=== PATIENT | male | born 1945 | race Hispanic/Latino ===

== ENCOUNTER 2017-06-22 08:18 | Day surgery (SDC) | payer MEDICARE ==
[2016-06-14 09:51] VITALS: BMI 33.0
[2017-06-22] MEDS ORDERED: Lactated Ringer's 1,000 ML IV SCH (09:15)
[2017-06-22] MEDS ORDERED: Propofol 10 mg/ml Inj (20 ML) ONE (09:59)
[2017-06-22] MEDS ORDERED: ePHEDrine 50 mg/ml Inj ONE (11:20)
[2017-06-22 12:15] VITALS: O2SAT 95
[2017-06-22 12:30] VITALS: BP 107/62; PULSE 60; RESP 18; TEMP 97.6
== END 2017-06-22 13:04 | disposition home or self-care (01) ==
LOC: ENDO 08:18
PROVIDERS: ATTEND Internal Medicine Gastroenterology
DX: K29.50 Unspecified chronic gastritis without bleeding (principal); K31.9 Disease of stomach and duodenum, unspecified; Z12.11 Encounter for screening for malignant neoplasm of colon; K64.8 Other hemorrhoids; K64.4 Residual hemorrhoidal skin tags; K62.89 Other specified diseases of anus and rectum; K63.89 Other specified diseases of intestine
CPT/HCPCS: 43239; 45380; 88305; 88312; 88342; J2001; J2704; J3010; J7040; J7120

== ENCOUNTER 2017-09-27 12:42 | Emergency (ER) | payer MEDICARE ==
[2017-09-27 12:43] VITALS: BMI 33.0
[2017-09-27 13:20] VITALS: BP 155/70
--- NOTE | 2017-09-27 13:54 | ED PDOC ---
Arrival/HPI - General Chief Complaint: ENT Problem Time Seen by Provider: 09/27/17 13:53 Historian: Patient - History of Present Illness Narrative History of Present Illness (Text): 09/27/17 13:54 A 72 year old male, whose past medical history includes hypertension, cholecystectomy, and coronary stent x 1, presents to the emergency department complaining of sore throat. Patient reports 1 week ago having been diagnosed with URI, and felt better 4 days ago. Afterwards, patient began developing sore throat and right-side throat pain. Patient denies any toothache, earache, fever , chest pain, shortness of breath, abdominal pain, or any other complaints. Patient also denies any recent travel or recent sick contacts. Also, patient is requesting to have [employer] since it has work in the past. 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) - Surgical History Hx Cataract Extraction: Yes Hx Cholecystectomy: Yes Hx Coronary Stent: Yes (x1) - Anesthesia Hx Anesthesia Reactions: No Hx Malignant Hyperthermia: No - Suicidal Assessment Feels Threatened In Home Enviroment: No Family/Social History - Physician Review Nursing Documentation Reviewed: Yes Family/Social History: Other (noncontributory) Smoking Status: Heavy Smoker > 10 Cigarettes Daily Hx Alcohol Use: No (NOT SINCE 8 YRS) 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 absent: Fevers, Night Sweats Eyes: Normal ENT: Sore Throat (as wel as right-side throat pain). absent: Other (no earache and no toothache.) Respiratory: Normal. absent: SOB, Cough, Sputum, Wheezing Cardiovascular: absent: Chest Pain, Palpitations, Edema, Calf Pain, AYALA, Orthopnea, Syncope Gastrointestinal: Normal. absent: Abdominal Pain Genitourinary Male: Normal. absent: Dysuria, Hematuria Musculoskeletal: Normal. absent: Myalgias Skin: Normal. absent: Rash Neurological: Normal. absent: Headache, Dizziness, Focal Weakness, Gait Changes , Speech Changes, Facial Droop, Disequilibrium, Seizure Endocrine: Normal Hemo/Lymphatic: Normal Psychiatric: Normal Physical Exam Vital Signs Reviewed: Yes Vital Signs Temp Pulse Resp BP Pulse Ox 09/27/17 13:16 97.8 F 58 L 17 155/70 H 97 Temperature: Afebrile Blood Pressure: Hypertensive Pulse: Regular Respiratory Rate: Normal Appearance: Positive for: Well-Appearing Pain Distress: None Mental Status: Positive for: Alert and Oriented X 3 - Systems Exam Head: Present: Atraumatic, Normocephalic Pupils: Present: PERRL Extroacular Muscles: Present: EOMI Conjunctiva: Present: Normal Mouth: Present: Moist Mucous Membranes Pharnyx: Present: ERYTHEMA (mild). No: EXUDATE, Peritonsilar Swelling, Uvular Deviation, Muffled/Hoarse Voice, Strider, Soft Palate/Uvular Edema Neck: Present: Normal Range of Motion, Trachea Midline. No: Meningeal Signs, MIDLINE TENDERNESS, Paraspinal Tenderness, Lymphadenopathy Respiratory/Chest: Present: Clear to Auscultation, Good Air Exchange. No: Respiratory Distress, Accessory Muscle Use, Wheezes, Retracting, Rhonchi Cardiovascular: Present: Regular Rate and Rhythm, Normal S1, S2. No: Murmurs Abdomen: No: Tenderness, Distention, Peritoneal Signs Back: Present: Normal Inspection Upper Extremity: Present: Normal Inspection, Normal ROM. No: Cyanosis, Edema Lower Extremity: Present: Normal Inspection, Normal ROM. No: Edema Neurological: Present: GCS=15, CN II-XII Intact, Speech Normal, Motor Func Grossly Intact, Normal Sensory Function, Normal Cerebellar Funct, Gait Normal, Memory Normal, Other (no neuro focal deficits) Skin: Present: Warm, Dry, Normal Color. No: Rashes Psychiatric: Present: Alert, Oriented x 3, Normal Insight, Normal Concentration Medical Decision Making ED Course and Treatment: 09/27/17 14:05 Impression: 72 year old male with sore throat and right-side throat pain. Physical exam shows some erythema to pharynx, no visible exudates. Plan: -- Reassess and disposition Progress Notes: 09/27/17 14:00 Re-evaluation. Patient feels better. Discussed results and plan with patient who expresses understanding. All questions answered and there is agreement with the plan to discharge home with instructions. Patient stable for discharge. Return if symptoms persist or worsen. Re-evaluation Time: 14:11 Reassessment Condition: Re-examined, Improved - Scribe Statement The provider has reviewed the documentation as recorded by the Thomas Rivera Provider Scribe Attestation: All medical record entries made by the Roeibchuckie were at my direction and personally dictated by me. I have reviewed the chart and agree that the record accurately reflects my personal performance of the history, physical exam, medical decision making, and the department course for this patient. I have also personally directed, reviewed, and agree with the discharge instructions and disposition. Disposition/Present on Arrival - Present on Arrival Any Indicators Present on Arrival: No History of DVT/PE: No History of Uncontrolled Diabetes: No Urinary Catheter: No History of Decub. Ulcer: No History Surgical Site Infection Following: None - Disposition Have Diagnosis and Disposition been Completed?: Yes Diagnosis: Pharyngitis Disposition: HOME/ ROUTINE Disposition Time: 14:08 Patient Plan: Discharge Patient Problems: Current Active Problems Problem Status Onset Pharyngitis Acute Condition: IMPROVED Discharge Instructions (ExitCare): Sore Throat in Adults Additional Instructions: Call private doctor for follow up visit in 1-2 days. Take medication as instructed. Return to emergency if symptoms worsen, shortness of breath, or worsening of symptoms. Prescriptions: Azithromycin [Z-Filippo] 250 mg PO DAILY #6 tab Referrals: Sharad Storey MD [Non-Staff] - Follow up with primary Forms: [employer] ([place])
[2017-09-27 16:58] VITALS: PULSE 59; RESP 18; TEMP 98.1; O2SAT 98
== END 2017-09-27 14:12 | disposition home or self-care (01) ==
LOC: ED 12:42
DX: J02.9 Acute pharyngitis, unspecified (principal); F17.210 Nicotine dependence, cigarettes, uncomplicated

== ENCOUNTER 2018-06-09 08:32 | Emergency (ER) | payer MEDICARE ==
[2018-06-09 08:33] VITALS: BMI 33.0
[2018-06-09 09:14] VITALS: BP 150/85; PULSE 56; RESP 20; TEMP 99.4; O2SAT 98
[2018-06-09 09:39] LABS: ALB/GLOB RATIO 1.4 (1.1-1.8); ALBUMIN 4.2 g/dL (3.0-4.8); ALT/SGPT 28 U/L (7-56); AST/SGOT 34 U/L (17-59); BLOOD UREA NITROGEN 12 mg/dL (7-21); CALCIUM 9.4 mg/dL (8.4-10.5); GFR NON-AFRICAN AMERICAN > 60
[2018-06-09 09:45] LABS: BASO # 0.06 K/mm3 (0.0-2.0); BASO % 0.6 % (0.0-3.0); EOS # 0.7 (0.0-0.7); EOS % 7.4 % (1.5-5.0); GRAN # 6.5 (1.4-6.5); GRAN % 66.2 % (50.0-68.0); HEMOGLOBIN 13.1 g/dL (14.0-18.0); LYMPH # 1.9 (1.2-3.4); LYMPH % 19.1 % (22.0-35.0); MEAN CORPUSCULAR HEMOGLOBIN 34.4 pg (25.0-35.0); MEAN CORPUSCULAR HGB CONC 34.4 g/dl (31.0-37.0); MEAN PLATELET VOLUME 10.2 fl (7.0-11.0); MONO # 0.7 (0.1-0.6); MONO % 6.7 % (1.0-6.0); RBC 3.81 10^6/uL (3.5-6.1); RED CELL DISTRIBUTION WIDTH 13.4 % (11.5-14.5); WHITE BLOOD COUNT 9.8 10^3/uL (4.5-11.0)
[2018-06-09 09:51] LABS: B-TYPE NATRIURETIC PEPTIDE 126 pg/mL (0-450); TROPONIN I < 0.01 ng/mL
--- NOTE | 2018-06-09 09:54 | CT ---
Date of service: 06/09/2018 PROCEDURE: CT HEAD WITHOUT CONTRAST. HISTORY: Dizziness 3 days duration. R/o ICH COMPARISON: 05/07/2016. CT head. TECHNIQUE: Axial computed tomography images were obtained through the head/brain without intravenous contrast. Supplemental Coronal and Sagittal projections created and reviewed. Radiation dose: Total exam DLP = 832.35 mGy-cm. This CT exam was performed using one or more of the following dose reduction techniques: Automated exposure control, adjustment of the mA and/or kV according to patient size, and/or use of iterative reconstruction technique. FINDINGS: HEMORRHAGE: No intracranial hemorrhage. BRAIN: No mass effect or edema. No atrophy or chronic microvascular ischemic changes. VENTRICLES: Unremarkable. No hydrocephalus. CALVARIUM: Unremarkable. PARANASAL SINUSES: Chronic ethmoid air cell disease. MASTOID AIR CELLS: Unremarkable as visualized. No inflammatory changes. OTHER FINDINGS: None. IMPRESSION: No acute intracranial abnormalities. No significant findings to account for the clinical presentation. No significant interval change compared to the prior examination(s).
[2018-06-09 10:13] LABS: T3 1.07 ng/mL (0.97-1.69)
--- NOTE | 2018-06-09 10:27 | RAD ---
Date of service: 06/09/2018 HISTORY: r/o infiltrate COMPARISON: 01/26/2017 FINDINGS: LUNGS: No active pulmonary disease. PLEURA: No significant pleural effusion identified, no pneumothorax apparent. CARDIOVASCULAR: Atherosclerotic calcifications identified primarily aortic arch. No radiographic findings to suggest acute or significant cardiovascular disease. OSSEOUS STRUCTURES: No significant abnormalities. Radiographic healing of multiple contiguous posterior lateral right rib fractures. Similar findings identified on the prior study. VISUALIZED UPPER ABDOMEN: Normal. OTHER FINDINGS: None. IMPRESSION: No active disease. No significant interval change compared to the prior examination(s).
[2018-06-09 10:31] LABS: PH,URINE 6.5 (4.7-8.0); URINE BILIRUBIN NEGATIVE (NEGATIVE); URINE BLOOD NEGATIVE (NEGATIVE); URINE GLUCOSE (UA) NEGATIVE (NEGATIVE); URINE LEUKOCYTE ESTERASE NEGATIVE Leu/uL (NEGATIVE); URINE PROTEIN NEGATIVE mg/dL (<30 mg/dL); URINE UROBILINOGEN 0.2 E.U./dL (<1 E.U./dL)
[2018-06-09 10:32] LABS: URINE APPEARANCE CLEAR (CLEAR); URINE COLOR YELLOW (YELLOW)
[2018-06-09] MEDS ORDERED: Sodium Chloride 0.9% 1,000 ML IV SCH (11:00)
--- NOTE | 2018-06-09 12:42 | CP.PCM.HP ---
<Thanh Rios - Last Filed: 06/09/18 12:56> History of Present Illness - History of Present Illness History of Present Illness: H&P for hospitalist CC: Dizziness & headache 73 M with PMHx oo AAA s/p stent repair, HTN, chronic diarrhea presents with dizziness and headache. Patient states that his symptoms started 3-4 days ago. The dizziness is intermittent and can come at any time. Denies any dizziness at this time. Patient also states that he is feeling a cold coming with runny nose, and nasal/facial congestion. Patient states that 3 days ago he went to his shelter case manager which did an EKG and was sent home and told to follow with his PMD. He denies any other symptoms. Denies any fever, chills, sore throat, sob, chest pain, abd pain, n/v, urinary symptoms. 12 Point ROS performed and neg other than stated above PMHx: as above PSHx: AAA repair, pilonidal cyst remova, cholecystecotmy ALL: NKA SH: prior heroin use?, denies drinking, smokes 1.5 PPD FH: father with hear disease Present on Admission - Present on Admission Any Indicators Present on Admission: No Review of Systems - Review of Systems All systems: reviewed and no additional remarkable complaints except Past Patient History - Infectious Disease Hx of Infectious Diseases: None - Past Social History Smoking Status: Heavy Smoker > 10 Cigarettes Daily - CARDIAC Hx Hypertension: Yes - NEUROLOGICAL Hx Paralysis: No - HEMATOLOGICAL/ONCOLOGICAL Hx Blood Transfusions: No - MUSCULOSKELETAL/RHEUMATOLOGICAL Hx Musculoskeletal Disorders: No - PSYCHIATRIC Hx Emotional Abuse: No Hx Physical Abuse: No 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, 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) - SURGICAL HISTORY Hx Cataract Extraction: Yes Hx Cholecystectomy: Yes Hx Coronary Stent: Yes (x1) - ANESTHESIA Hx Anesthesia: Yes Hx Anesthesia Reactions: No Hx Malignant Hyperthermia: No Meds Home Medications: Home Medication List Medication Instructions Recorded Confirmed Type RX: Meclizine [Meclizine*] 25 mg PO TID #15 tab 06/09/18 Rx Allergies/Adverse Reactions: Allergies Allergy/AdvReac Type Severity Reaction Status Date / Time No Known Allergies Allergy Verified 06/09/18 09:00 Physical Exam - Constitutional Appears: No Acute Distress - Head Exam Head Exam: ATRAUMATIC, NORMOCEPHALIC - Eye Exam Eye Exam: EOMI, PERRL - ENT Exam ENT Exam: Mucous Membranes Moist - Respiratory Exam Respiratory Exam: Clear to Auscultation Bilateral. absent: Rales, Wheezes - Cardiovascular Exam Cardiovascular Exam: REGULAR RHYTHM, RRR, +S1, +S2 - GI/Abdominal Exam GI & Abdominal Exam: Normal Bowel Sounds, Soft - Extremities Exam Extremities exam: Negative for: calf tenderness, pedal edema - Neurological Exam Neurological exam: Alert, CN II-XII Intact, Oriented x3 - Psychiatric Exam Psychiatric exam: Normal Mood - Skin Skin Exam: Dry, Intact, Warm Results - Vital Signs Recent Vital Signs: Last Vital Signs Temp 99.4 F 06/09/18 08:49 Pulse 56 L 06/09/18 08:49 Resp 20 06/09/18 08:49 BP 150/85 06/09/18 08:49 Pulse Ox 98 06/09/18 08:43 - Labs Result Diagrams: 06/09/18 09:12 06/09/18 09:12 Labs: Laboratory Results - last 24 hr 06/09/18 06/09/18 06/09/18 09:12 09:12 09:12 WBC 9.8 RBC 3.81 Hgb 13.1 L Hct 38.1 L MCV 100.0 MCH 34.4 MCHC 34.4 RDW 13.4 Plt Count 318 MPV 10.2 Gran % 66.2 Lymph % (Auto) 19.1 L Gillespie % (Auto) 6.7 H Eos % (Auto) 7.4 H Baso % (Auto) 0.6 Gran # 6.50 Lymph # (Auto) 1.9 Gillespie # (Auto) 0.7 H Eos # (Auto) 0.7 Baso # (Auto) 0.06 Sodium 138 Potassium 3.9 Chloride 104 Carbon Dioxide 27 Anion Gap 11 BUN 12 Creatinine 0.8 Est GFR ( Amer) > 60 Est GFR (Non-Af Amer) > 60 Random Glucose 148 H Calcium 9.4 Magnesium 1.8 Total Bilirubin 0.4 AST 34 ALT 28 Alkaline Phosphatase 67 Lactate Dehydrogenase 517 Total Creatine Kinase 104 Troponin I < 0.01 NT-Pro-B Natriuret Pep 126 Total Protein 7.3 Albumin 4.2 Globulin 3.0 Albumin/Globulin Ratio 1.4 Total T3 1.07 TSH 3rd Generation 2.41 Urine Color Urine Appearance Urine pH Ur Specific [place] Urine Protein Urine Glucose (UA) Urine Ketones Urine Blood Urine Nitrate Urine Bilirubin Urine Urobilinogen Ur Leukocyte Esterase Influenza Typ A,B (EIA) 06/09/18 06/09/18 10:15 12:15 WBC RBC Hgb Hct MCV MCH MCHC RDW Plt Count MPV Gran % Lymph % (Auto) Gillespie % (Auto) Eos % (Auto) Baso % (Auto) Gran # Lymph # (Auto) Gillespie # (Auto) Eos # (Auto) Baso # (Auto) Sodium Potassium Chloride Carbon Dioxide Anion Gap BUN Creatinine Est GFR ( Amer) Est GFR (Non-Af Amer) Random Glucose Calcium Magnesium Total Bilirubin AST ALT Alkaline Phosphatase Lactate Dehydrogenase Total Creatine Kinase Troponin I NT-Pro-B Natriuret Pep Total Protein Albumin Globulin Albumin/Globulin Ratio Total T3 TSH 3rd Generation Urine Color Yellow Urine Appearance Clear Urine pH 6.5 Ur Specific [place] <= 1.005 Urine Protein Negative Urine Glucose (UA) Negative Urine Ketones Negative Urine Blood Negative Urine Nitrate Negative Urine Bilirubin Negative Urine Urobilinogen 0.2 Ur Leukocyte Esterase Negative Influenza Typ A,B (EIA) Negative for flu a/b Assessment & Plan - Assessment and Plan (Free Text) Assessment: 73 M with PMHx oo AAA s/p stent repair, HTN, chronic diarrhea presents with dizziness and headache. Likely 2/2 URI / labrynthitis. Dizziness likely 2/2 labrynthitis: - EKG - bradycardic nsr - Head CT - neg - CXR was neg - Started on Meclizine 25mg TID - Consider decreasing metoprolol as HR is 55 - Labwork reviewed - Influenza - neg - Cardiology and neuro evaluation - Physicial Therapy HTN: - Cont lisinopril and metoprolol - Consider dec Metoprolol - F/u orthostatic HTN Evaluated the patient in the ED. Patient states that his dizziness and completely subsided and does not want to be admitted overnight for observation. Patient wishes to go home and follow up with his cardiology Dr Lugo tomorrow. Explained to the patient that if his symptoms recur come back to the ED. Script for Meclizine sent to the pharmacy. Case and plan was reviewed and discussed with Dr Hankins. <Carlos Hankins - Last Filed: 06/09/18 18:19> Results - Vital Signs Recent Vital Signs: Last Vital Signs Temp 99.4 F 06/09/18 08:49 Pulse 56 L 06/09/18 08:49 Resp 20 06/09/18 08:49 BP 150/85 06/09/18 08:49 Pulse Ox 98 06/09/18 08:43 - Labs Result Diagrams: 06/09/18 09:12 06/09/18 09:12 Labs: Laboratory Results - last 24 hr 06/09/18 06/09/18 06/09/18 08:55 09:12 09:12 WBC 9.8 RBC 3.81 Hgb 13.1 L Hct 38.1 L MCV 100.0 MCH 34.4 MCHC 34.4 RDW 13.4 Plt Count 318 MPV 10.2 Gran % 66.2 Lymph % (Auto) 19.1 L Gillespie % (Auto) 6.7 H Eos % (Auto) 7.4 H Baso % (Auto) 0.6 Gran # 6.50 Lymph # (Auto) 1.9 Gillespie # (Auto) 0.7 H Eos # (Auto) 0.7 Baso # (Auto) 0.06 Sodium 138 Potassium 3.9 Chloride 104 Carbon Dioxide 27 Anion Gap 11 BUN 12 Creatinine 0.8 Est GFR ( Amer) > 60 Est GFR (Non-Af Amer) > 60 POC Glucose (mg/dL) 177 H Random Glucose 148 H Calcium 9.4 Magnesium 1.8 Total Bilirubin 0.4 AST 34 ALT 28 Alkaline Phosphatase 67 Lactate Dehydrogenase 517 Total Creatine Kinase 104 Troponin I < 0.01 NT-Pro-B Natriuret Pep 126 Total Protein 7.3 Albumin 4.2 Globulin 3.0 Albumin/Globulin Ratio 1.4 Total T3 TSH 3rd Generation Urine Color Urine Appearance Urine pH Ur Specific [place] Urine Protein Urine Glucose (UA) Urine Ketones Urine Blood Urine Nitrate Urine Bilirubin Urine Urobilinogen Ur Leukocyte Esterase Influenza Typ A,B (EIA) 06/09/18 06/09/18 06/09/18 09:12 10:15 12:15 WBC RBC Hgb Hct MCV MCH MCHC RDW Plt Count MPV Gran % Lymph % (Auto) Gillespie % (Auto) Eos % (Auto) Baso % (Auto) Gran # Lymph # (Auto) Gillespie # (Auto) Eos # (Auto) Baso # (Auto) Sodium Potassium Chloride Carbon Dioxide Anion Gap BUN Creatinine Est GFR ( Amer) Est GFR (Non-Af Amer) POC Glucose (mg/dL) Random Glucose Calcium Magnesium Total Bilirubin AST ALT Alkaline Phosphatase Lactate Dehydrogenase Total Creatine Kinase Troponin I NT-Pro-B Natriuret Pep Total Protein Albumin Globulin Albumin/Globulin Ratio Total T3 1.07 TSH 3rd Generation 2.41 Urine Color Yellow Urine Appearance Clear Urine pH 6.5 Ur Specific [place] <= 1.005 Urine Protein Negative Urine Glucose (UA) Negative Urine Ketones Negative Urine Blood Negative Urine Nitrate Negative Urine Bilirubin Negative Urine Urobilinogen 0.2 Ur Leukocyte Esterase Negative Influenza Typ A,B (EIA) Negative for flu a/b Attending/Attestation - Attestation I have personally seen and examined this patient.: Yes I have fully participated in the care of the patient.: Yes I have reviewed all pertinent clinical information: Yes Notes (Text): 06/09/18 18:16 Medical record note made by the resident after discussion with my direction and input after the patient was personally seen and examined by me. I have reviewed the chart and agree that the record accurately reflects by personal performance of the history, physical exam, data review, and medical decision-making, in the course for the patient. I have also personally directed the plan of care. 73 M with PMHx oo AAA s/p stent repair, HTN, chronic diarrhea presents with dizziness and headache.CT head is negative.There is no focal deficit. There is H/o URI.The etiology is likely due Labyrinthitis. Patient is ambulatory in the ER and is asymptometic.He does not want to stay in the hospital. Risk and benefit was discussed in detail with him. As patient does not want to stay in the hospital, he will be discharged home on Meclizine and he will follow up with his PCP and Cardiology. He was educated about the risk of fall in detail. Management plan was discussed in detail with patient. Education was provided
--- NOTE | 2018-06-09 15:51 | ED PDOC ---
Arrival/HPI - General Chief Complaint: Dizziness/Lightheaded Time Seen by Provider: 06/09/18 08:37 Historian: Patient - History of Present Illness Narrative History of Present Illness (Text): 06/09/18 15:51 A 73 year old male, whose past medical history includes hypertension, cholecysectomy, and coranary stent x 1, presents to the emergency department complaining of multiple episodes of dizziness for 3 days. Patient reports having 10-15 episodes of dizzy spells daily. States he does various activities when these occur and is uncertain what specifically causes dizziness to happen. 3 days ago, patient went to see his assistant mechanic and had an EKG performed, which was negative. Patient denies any other complaints at this time. PMD: Dr. Robin Weld Technician: Dr. 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) - Surgical History Hx Cataract Extraction: Yes Hx Cholecystectomy: Yes Hx Coronary Stent: Yes (x1) - Anesthesia Hx Anesthesia: Yes Hx Anesthesia Reactions: No Hx Malignant Hyperthermia: No - Suicidal Assessment Feels Threatened In Home Enviroment: No Family/Social History - Physician Review Nursing Documentation Reviewed: Yes Family/Social History: No Known Family HX Smoking Status: Heavy Smoker > 10 Cigarettes Daily Hx Alcohol Use: No (NOT SINCE 8 YRS) 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, 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) Allergies/Home Meds Allergies/Adverse Reactions: Allergies No Known Allergies Allergy (Verified 06/09/18 09:00) Home Medications: Home Meds Medication Instructions Recorded Confirmed Lisinopril 40 mg PO DAILY 10/01/15 06/09/18 Metoprolol Tartrate 25 mg PO BID 10/01/15 06/09/18 Review of Systems - Physician Review All systems were reviewed & negative as marked: Yes - Review of Systems Constitutional: absent: Fevers, Night Sweats Respiratory: absent: SOB Cardiovascular: absent: Chest Pain Gastrointestinal: absent: Abdominal Pain, Diarrhea, Nausea Neurological: Dizziness (10-15 episodes daily, uncertain how they occur.). absent: Headache Physical Exam Vital Signs Reviewed: Yes Vital Signs Temp Pulse Resp BP Pulse Ox 06/09/18 08:49 99.4 F 56 L 20 150/85 06/09/18 08:43 99.4 F 52 L 18 150/72 98 Temperature: Afebrile Blood Pressure: Normal Pulse: Regular Respiratory Rate: Normal Appearance: Positive for: Well-Appearing, Non-Toxic, Comfortable Pain Distress: None Mental Status: Positive for: Alert and Oriented X 3 Finger Stick Blood Glucose: 177 - Systems Exam Head: Present: Atraumatic, Normocephalic Pupils: Present: PERRL Extroacular Muscles: Present: EOMI Conjunctiva: Present: Normal Mouth: Present: Moist Mucous Membranes Neck: Present: Normal Range of Motion Respiratory/Chest: Present: Clear to Auscultation, Good Air Exchange. No: Respiratory Distress, Accessory Muscle Use Cardiovascular: Present: Regular Rate and Rhythm, Normal S1, S2. No: Murmurs Abdomen: No: Tenderness, Distention, Peritoneal Signs Back: Present: Normal Inspection Upper Extremity: Present: Normal Inspection. No: Cyanosis, Edema Lower Extremity: Present: Normal Inspection. No: Edema Neurological: Present: GCS=15, CN II-XII Intact, Speech Normal Skin: Present: Warm, Dry, Normal Color. No: Rashes Psychiatric: Present: Alert, Oriented x 3, Normal Insight, Normal Concentration Medical Decision Making ED Course and Treatment: 06/09/18 15:55 Impression: 73 year old male with multiple episodes of dizziness daily. No acute findings on physical examination. Plan: -- EKG -- Head CT -- Chest X-Ray -- Labs -- Urine Culture -- Urinalysis Prior Visits: Patient was last seen here in the emergency department on 09/27/2017 for sore throat. Patient was discharged home. Progress Notes: EKG - Sinus bradycardia @ 52 BPM, with normal access and 1st degree AV block. 06/09/18 09:45 Chest X-Ray IMPRESSION: No active disease. No significant interval change compared to prior examination(s). Dictator: Howard Shaw MD 06/09/2018 09:[address] IMPRESSION: No acute intracranial abnormalities. No significant findings to account for the clinical presentation. No significant interval change compared to prior examination(s). Dictator: Howard Shaw MD 06/09/18 10:[address] Hankins, who accepts patient under service. - Lab Interpretations Lab Results: Troponin I < 0.01 ng/mL 06/09/18 09:12 NT-Pro-B Natriuret Pep 126 pg/mL (0-450) 06/09/18 09:12 Total Bilirubin 0.4 mg/dL (0.2-1.3) 06/09/18 09:12 AST 34 U/L (17-59) 06/09/18 09:12 ALT 28 U/L (7-56) 06/09/18 09:12 Alkaline Phosphatase 67 U/L (38-126) 06/09/18 09:12 Total Protein 7.3 g/dL (5.8-8.3) 06/09/18 09:12 Albumin 4.2 g/dL (3.0-4.8) 06/09/18 09:12 Globulin 3.0 gm/dL 06/09/18 09:12 Albumin/Globulin Ratio 1.4 (1.1-1.8) 06/09/18 09:12 Urine Color Yellow (YELLOW) 06/09/18 10:15 Urine Appearance Clear (CLEAR) 06/09/18 10:15 Urine pH 6.5 (4.7-8.0) 06/09/18 10:15 Ur Specific [place] <= 1.005 (1.005-1.035) 06/09/18 10:15 Urine Protein Negative mg/dL (<30 mg/dL) 06/09/18 10:15 Urine Glucose (UA) Negative mg/dL (NEGATIVE) 06/09/18 10:15 Urine Ketones Negative mg/dL (NEGATIVE) 06/09/18 10:15 Urine Blood Negative (NEGATIVE) 06/09/18 10:15 Urine Nitrate Negative (NEGATIVE) 06/09/18 10:15 Urine Bilirubin Negative (NEGATIVE) 06/09/18 10:15 Urine Urobilinogen 0.2 E.U./dL (<1 E.U./dL) 06/09/18 10:15 Ur Leukocyte Esterase Negative Alli/uL (NEGATIVE) 06/09/18 10:15 - RAD Interpretation Radiology Orders: 06/09/18 09:09 CHEST PORTABLE [RAD] Stat 06/09/18 09:10 HEAD W/O CONTRAST [CT] Stat - Medication Orders Current Medication Orders: Sodium Chloride (Sodium Chloride 0.9%) 1,000 mls @ 100 mls/hr IV .Q10H HENRIETTA Last Admin: 06/09/18 11:22 Dose: 100 mls/hr eMAR Start Stop Document 06/09/18 11:22 KW (Rec: 06/09/18 11:28 KW [id number]) Intravenous Solution Start Date 06/09/18 Start Time 11:23 End Date 06/09/18 End time 09:50 Total Infusion Time -93 - Scribe Statement The provider has reviewed the documentation as recorded by the Thomas Rivera Provider Scribe Attestation: All medical record entries made by the Thomas were at my direction and personally dictated by me. I have reviewed the chart and agree that the record accurately reflects my personal performance of the history, physical exam, medical decision making, and the department course for this patient. I have also personally directed, reviewed, and agree with the discharge instructions and disposition. Disposition/Present on Arrival - Present on Arrival Any Indicators Present on Arrival: No History of DVT/PE: No History of Uncontrolled Diabetes: No Urinary Catheter: No History of Decub. Ulcer: No History Surgical Site Infection Following: None - Disposition Have Diagnosis and Disposition been Completed?: Yes Diagnosis: Near syncope Disposition: HOSPITALIZED Disposition Time: 10:30 Condition: STABLE
--- NOTE | 2018-06-09 22:07 | CARD ---
APPROVED REPORT Date of service: 06/09/2018 EKG Measurement Heart [id number] <Conclusion> Sinus bradycardia Septal infarct, age undetermined Abnormal ECG
== END 2018-06-09 11:22 | disposition home or self-care (01) ==
LOC: ED 08:32 → UNDOADMOB 10:47 → ERH 10:47 → ED 11:22 → ERH 13:29
DX: R55 Syncope and collapse (principal); I10 Essential (primary) hypertension; F17.210 Nicotine dependence, cigarettes, uncomplicated
CPT/HCPCS: 70450; 71045; 80053; 81003; 82550; 82948; 83615; 83735; 83880; 84443; 84480; 84484; 85025; 87086; 87804; 93005; 99284; J7030

== ENCOUNTER 2018-07-31 07:50 | Outpatient (CLI) | payer MEDICARE | END 2018-07-31 07:51 | disposition home or self-care (01) | LOC: LAB 07:50 ==

== ENCOUNTER 2018-10-15 06:58 | Outpatient (CLI) | payer MEDICARE | END 2018-10-15 06:59 | disposition home or self-care (01) | LOC: RAD 06:58 ==